=== PATIENT | male | born 1940 | race Asian ===

== ENCOUNTER 2017-01-25 12:56 | Inpatient (IN) | payer MEDICARE, MEDICAID ==
[~2017-01-25] VITALS: Ht 182.9 cm; Wt 66.2 kg
--- NOTE | 2017-01-25 13:35 | NUR ---
OFFSET PRINTING PRESSMEN NOTES RECEIVED PATIENT FROM [facility] TRANSPORTED BY DIRECTOR VETERINARY. PATIENT IS DIRECT ADMIT FROM [facility] UNDER DR ONOFRE. PATIENT'S BASE LINE IS ALTERED MENTAL STATUS, NON VERBAL, PUPILS EQUALLY ROUND AND REACTIVE TO LIGHT. PLACED PATIENT ON O2 2LPM VIA NC, SAT 95%. IQ=825/60, R= 24, T= 99.7. ON TELEMONITOR ST 102. SINCLAIR IN PLACE, DRAINING SLIGHTLY CLOUDY HELEN URINE. IV SITE ON RIGHT AC AND LEFT AC. KEPT PATIENT SAFE AND COMFORTABLE. BED IN LOCKED, LOW POSITION, HOB ELEVATED, SIDERAILS UPX2, CALL LIGHT IN REACH. NOTIFIED DR ONOFRE AND AWAITING FOR ADMITTING ORDERS. WILL CONTINUE TO MONITOR ACCORDINGLY Addendum: 01/25/17 at 1636 by FARHAD CAMPOS PATIENT GTUBE IN PLACE
[2017-01-25] MEDS ORDERED: CARB-93 PO (14:31)
[2017-01-25] MEDS ORDERED: DULO30CA2 PO (14:31)
[2017-01-25] MEDS ORDERED: QUET25TA PO (14:31)
[2017-01-25] MEDS ORDERED: TERA5CAP4 PO (14:31)
[2017-01-25] MEDS ORDERED: IV NS 0.9% 1,000 ML IV PRN (14:41)
[2017-01-25] MEDS ORDERED: ACETAMINOPHEN 325 MG TABLET PO PRN (15:00)
[2017-01-25] MEDS ORDERED: MAGNESIUM HYDROXIDE 30 ML UDC PO PRN (15:00)
[2017-01-25] MEDS ORDERED: MAG HYDROX/AL HYDROX/SIMETH 30 ML UDC PO PRN (15:00)
[2017-01-25] MEDS ORDERED: ONDANSETRON HCL/PF 4 MG/2 ML VIAL IVP PRN (15:00)
[2017-01-25] MEDS ORDERED: Z GUARD REMEDY 2 OZ OINT TP PRN (15:00)
[2017-01-25] MEDS ORDERED: ZOLPIDEM TARTRATE 5 MG TABLET PO PRN (15:00)
[2017-01-25] MEDS ORDERED: HYDROCODONE/APAP 5/325MG 1 EACH TABLET PO PRN (15:00)
[2017-01-25 16:00] VITALS: BP_SYST 92; BP_SYST 95; BP_DIAS 42; BP_DIAS 51
[2017-01-25] MEDS ORDERED: ENOXAPARIN SODIUM 30 MG/0.3 ML DISP.SYRIN SQ SCH (16:00)
[2017-01-25] MEDS: ACETAMINOPHEN 650 MG/20.3 ML UDC GT PRN (17:25)
[2017-01-25] MEDS: CARBIDOPA/LEVODOPA 25/100 MG 1 UDTAB PO SCH (17:25)
--- NOTE | 2017-01-25 18:00 | NUR ---
RN NOTES CALLED [facility] TO FOLLOW UP PATIENT'S GTUBE FEEDINGS. PER SNF RN, THEY WILL FAX THE PAPERWORK.
--- NOTE | 2017-01-25 19:20 | NUR ---
RN NOTES RECEIVED FAX FROM [facility] FOR PATIENT'S GTUBE FEEDING. ENDORSED IT TO OUTREACH NURSE RN.
--- NOTE | 2017-01-25 19:30 | NUR ---
RN CLOSING NOTES PATIENT IN BED RESTING, RESPONSIVE TO PAIN. NO ACUTE DISTRESS, NO SOB NOTED. NO S/S OF PAIN OR DISCOMFORT. ALL NEEDS ATTENDED AND PROVIDED. BED IN LOW POSITION, LOCKED, HOB ELEVATED, SIDERAILS UPX2. CALL LIGHT IN REACH. ENDORSED TO NIGHT RN FOR RADHAMES. ENDORSED TO TOLL LINE MECHANIC RN TO FOLLOW UP ON PATIENT'S ADVANCE DIRECTIVES.
--- NOTE | 2017-01-25 20:08 | NUR ---
RN OPENING NOTES PT RESTING IN BED. NONVERBAL. NO APPARENT S/S OF PAIN OR DISTRESS NOTED AT THIS TIME. NO SOB. WILL CONTINUE TO MONITOR. PT IV PATENT AND INTACT. SINCLAIR CATHETER IN PLACE AND DRAINING WELL. TELE MONITORED SR-91. RECEIVED FEEDING ORDER FROM [facility]. WILL BEGIN G-TUBE FEEDING THIS EVENING. SAFETY MEASURES IN PLACE. BED IN LOW, LOCKED POSITION, 2XSIDE RAILS UP. CALL LIGHT WITHIN REACH.
[2017-01-25 20:14] VITALS: BP 101/61
[2017-01-25] MEDS: QUETIAPINE FUMARATE 25 MG TABLET PO SCH (21:31)
[2017-01-25] MEDS: TERAZOSIN HCL 5 MG CAPSULE PO SCH (21:37)
--- NOTE | 2017-01-25 22:00 | NUR ---
RN NOTES CALLED [facility]. PER [place] PT NA LEVEL 151. ADDRESSED SCHEDULED NS RUNNING. COKE DRAWER HAND ORDERED STAT LABS AND REQUESTED I FOLLOW UP WHEN THE RESULTS WERE BACK CONCERNING THE NA LEVEL.
[2017-01-25 23:24] LABS: BASOPHILS % (AUTO) 0.1 % (0.0-2.0); EOSINOPHILS % (AUTO) 0.1 % (0.0-6.0); HEMATOCRIT 39 % (39-51); HEMOGLOBIN 12.6 g/dL (13.5-17.5); LYMPHOCYTES % (AUTO) 9.8 % (20.0-44.0); MEAN CORPUSCULAR HEMOGLOBIN 27 PG (26.0-33.0); MEAN CORPUSCULAR HGB CONC 32 g/dl (31.0-36.0); MEAN CORPUSCULAR VOLUME 85 fL (80-96); MONOCYTES # (AUTO) 0.7 /CMM (0.1-1.30); MONOCYTES % (AUTO) 3.3 % (2.0-12.0); NEUTROPHILS # (AUTO) 17.5 /CMM (1.8-8.9); NEUTROPHILS % (AUTO) 86.7 % (43.0-81.0); PLATELET COUNT (AUTO) 186 /CMM (150-450); RDW COEFFICIENT OF VARIATION 14.8 (11.5-15.0); RED BLOOD CELL COUNT(AUTO) 4.61 MIL/uL (4.5-6.0); WHITE BLOOD COUNT (AUTO) 20.1 K/uL (4.3-11.0)
[2017-01-25 23:54] LABS: ALANINE AMINOTRANSFERASE 19 U/L (12-78); ALBUMIN 2.6 g/dL (3.4-5.0); ALKALINE PHOSPHATASE 63 U/L (46-116); ASPARTATE AMINOTRANSFERASE 27 U/L (15-37); BILIRUBIN,TOTAL 0.6 mg/dL (0.2-1.0); CARBON DIOXIDE 26 mmol/L (21-32); CHLORIDE 121 mmol/L (98-107); CREATININE 1.2 mg/dL (0.6-1.3); GLUCOSE 118 mg/dL (74-106); PHOSPHORUS 3.5 mg/dL (2.5-4.9); TOTAL PROTEIN, SERUM 6.9 g/dL (6.4-8.2); UREA NITROGEN, BLOOD 45 mg/dL (7-18)
[2017-01-26] VITALS (8 sets, daily range): BP systolic 87–116; BP diastolic 51–64
--- NOTE | 2017-01-26 | NUR ---
RECEIVED CALL FROM LAB [facility]. PT NA 156. WILL CONTACT FOR ORDERS.
[2017-01-26 00:03] LABS: SODIUM SERUM 156 mmol/L (136-145)
[2017-01-26] MEDS ORDERED: IV D5/0.45 NACL 1,000 ML IV SCH (00:30)
--- NOTE | 2017-01-26 00:30 | NUR ---
RN NOTES DR TOBAR RETURNED CALLED. PER PT NS LEVEL, ORDER D5 1/2 NS @75ML/HR TO REPLACE THE ORDER OF NS@75 ML/HR.
[2017-01-26 04:56] LABS: BAND % (MANUAL) 28 % (0.0-5.0); LYMPHOCYTES % (MANUAL) 8 % (16-48); MONOCYTES % (MANUAL) 4 % (0-11.0); NEUTROPHILS % (MANUAL) 60 (42-76)
[2017-01-26 06:19] LABS: BASOPHILS % (AUTO) 0.1 % (0.0-2.0); EOSINOPHILS # (AUTO) 0.1 /CMM (0.0-0.7); EOSINOPHILS % (AUTO) 0.8 % (0.0-6.0); HEMATOCRIT 37 % (39-51); HEMOGLOBIN 12.1 g/dL (13.5-17.5); LYMPHOCYTES # (AUTO) 1.7 /CMM (0.8-4.8); LYMPHOCYTES % (AUTO) 11.3 % (20.0-44.0); MEAN CORPUSCULAR HEMOGLOBIN 28 PG (26.0-33.0); MEAN CORPUSCULAR HGB CONC 33 g/dl (31.0-36.0); MEAN CORPUSCULAR VOLUME 85 fL (80-96); MONOCYTES # (AUTO) 0.5 /CMM (0.1-1.30); MONOCYTES % (AUTO) 3.4 % (2.0-12.0); NEUTROPHILS # (AUTO) 12.4 /CMM (1.8-8.9); NEUTROPHILS % (AUTO) 84.4 % (43.0-81.0); PLATELET COUNT (AUTO) 169 /CMM (150-450); RDW COEFFICIENT OF VARIATION 14.3 (11.5-15.0); RED BLOOD CELL COUNT(AUTO) 4.31 MIL/uL (4.5-6.0); WHITE BLOOD COUNT (AUTO) 14.7 K/uL (4.3-11.0)
[2017-01-26 06:39] LABS: CALCIUM, SERUM 8.9 mg/dL (8.5-10.1); CARBON DIOXIDE 27 mmol/L (21-32); CHLORIDE 121 mmol/L (98-107); GLUCOSE 102 mg/dL (74-106); MAGNESIUM 2.2 mg/dL (1.8-2.4); PHOSPHORUS 2.6 mg/dL (2.5-4.9); POTASSIUM 3.7 mmol/L (3.5-5.1); SODIUM SERUM 155 mmol/L (136-145); UREA NITROGEN, BLOOD 43 mg/dL (7-18)
--- NOTE | 2017-01-26 07:23 | NUR ---
PT CLOSING NOTES PT RESTING IN BED. PT NONVERBAL. NO APPARENT S/S OF PAIN OR DISTRESS NOTED. PT HAS D5 1/2NS RUNNING AT 75ML/HR. PT GTUBE FEEDING GLYTROL RUNNING AT 75ML/HR. PT TOLERATING FEEDING AND IVF WELL. SAFETY MEASURES IN PLACE. BED, IN LOW LOCKED POSITION, CALL LIGHT WITHIN REACH. ALL PT NEEDS MET. WILL ENDORSE TO DAY SHIFT NURSE FOR CONTINUITY OF CARE.
--- NOTE | 2017-01-26 08:08 | NUR ---
YARD COORDINATOR NOTES PATIENT IN BED, SLEEPING. ON OXYGEN AT 2L VIA NC, BREATHING EVEN AND NON LABORED. SINUS RHYTHM HR 85 IN THE MONITOR. APPEARS COMFORTABLE IN BED, NO FACIAL GRIMACING. ABDOMEN PRESENCE OF GTUBE, ON TUBE FEEDING GYTROL AT 75ML/HR, MAINTAIN HOB ELEVATED. BED LOW AND LOCKED, SIDE RAILS UP X2. WILL CONT TO MONITOR.
[2017-01-26] MEDS: CARBIDOPA/LEVODOPA 25/100 MG 1 UDTAB PO SCH ×2 (08:24→16:23)
[2017-01-26] MEDS ORDERED: DULOXETINE HCL 30 MG CAPSULE.DR PO SCH (09:00)
[2017-01-26] MEDS: IV D5/0.45 NACL 1,000 ML IV PRN ×2 (09:21→15:03)
--- NOTE | 2017-01-26 13:02 | NUR ---
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 RECOMMENDATIONS MADE FOR SKIN PROTECTION. DISCUSSED WITH NURSING STAFF. PT ON PREMA ISOFLEX LOW AIRLOSS BED. ALL SKIN PROTECTION MEASURES IN PLACE. WILL SEE PRN. GARCIA IN AGREEMENT WITH PLAN OF CARE. CURRENT DERRICK SCORE IS 11. Addendum: 01/26/17 at 1304 by YAMILA GALVAN WNDNU Amended: Links added.
[2017-01-26] MEDS: GLYTROL 1,000 ML BAG GT PRN (13:41)
[2017-01-26] MEDS: CEFTRIAXONE 1 G in IV D5W 50 ML IV SCH (14:28)
--- NOTE | 2017-01-26 15:14 | NUR ---
PER RD RECOMMENDATION INCREASED GLYTROL AT 80ML/HR X24 HOURS, INFORMED.
--- NOTE | 2017-01-26 18:46 | NUR ---
CAGE CASHIER CLOSING NOTES PATIENT IS A/O X1. ABLE TO OPEN HIS EYES, NON VERBAL. ON TELE MONITOR SINUS RHYTHM HR 79, IV IN LEFT AC G20 PATENT AND INTACT, IV D5 1/2 NS INFUSING AT 200ML/HR TO CONSUMED ORDERED 2000MLS TO INFUSE. MAINTAIN HOB ELEVATED, TOLERATING CURRENT TUBE FEEDING GLYTROL AT 80ML/HR. SINCLAIR CATH IN PLACE DRAINING TO GRAVITY. TURN AND REPOSITION Q 2HRS. COLLECTED SPECIMEN TODAY FOR MRSA SURVEILLANCE, RESULT PENDING. CALLED [facility] FOR COPIES OF DNR STATUS, UNABLE TO REACH MEDICAL RECORDS, WILL FOLLOW UP. WILL ENDORSE TO TECHNICAL TRAINING COORDINATOR RN FOR RADHAMES.
--- NOTE | 2017-01-26 19:27 | NUR ---
tele/rn opening notes patient resting comfortably in bed, asleep but arousable to touch. on oxygen via nc at 2l., respiratione even and unlabored. skin warm to touch. iv running 2nd bag iv site on LFA, brannon catheter draining with yellow urine, gtube running at 80ml /hr, with 10ml residual. will continue to monitor, patient is contracted require extensive assistance. tele monitor at SR79,
[2017-01-26] MEDS: ENOXAPARIN SODIUM 40 MG/0.4 ML DISP.SYRIN SQ SCH (20:37)
[2017-01-26] MEDS: QUETIAPINE FUMARATE 25 MG TABLET PO SCH (21:42)
[2017-01-26] MEDS: TERAZOSIN HCL 5 MG CAPSULE PO SCH (21:43)
--- NOTE | 2017-01-26 22:36 | NUR ---
tele/rn notes patient recheck b/p and pulse rate. noted elevated pulse rate at 109. b/p recheck at 122/59. temperature at 101. administer tylenol 650mg po by mouth w/ apple sauce, cooling measures provided,hob elevated. will monitor and recheck vital signs. administer b/p med , will monitor. Addendum: 01/27/17 at 0522 by CARLOS DAILEY RN WRONG NOTES FOR ANOTHER PATIENT.
[2017-01-27] VITALS (8 sets, daily range): BP systolic 85–126; BP diastolic 49–76
--- NOTE | 2017-01-27 04:00 | NUR ---
TELE/RN NOTES SPOKE WITH [facility] WORKER OF [facility] AND REQUESTED FOR MOUNA Flores MD SIGNATURE SAID WILL COMPLETE THE FORM AND FAXT WHEN AVAILABLE.
[2017-01-27] MEDS: GLYTROL 1,000 ML BAG GT PRN (04:03)
--- NOTE | 2017-01-27 06:45 | NUR ---
TELE/RN NOTES PATIENT IN HOB ELEVATED, RESTING COMFORTABLY IN BED, SKIN WARM TO TOUCH, REPOSITION FOR COMFORT. OBSERVED NO GRIMACE, OR GUARDING. MONITORING FOR ANY CHANGES. BED IN LOCK POSITION. RESIDUAL CHECK WITH ZERO RESIDUAL. ON OXYGEN VIA NC AT 2L.SINCLAIR CATHETER WITH YELLOW URINE OUTPUT. TELE READING AT SR 70'S. WILL ENDORSE TO AM RN FOR RADHAMES.
[2017-01-27 07:15] LABS: EOSINOPHILS # (AUTO) 0.2 /CMM (0.0-0.7); EOSINOPHILS % (AUTO) 1.9 % (0.0-6.0); HEMATOCRIT 37 % (39-51); HEMOGLOBIN 12.1 g/dL (13.5-17.5); LYMPHOCYTES # (AUTO) 1.3 /CMM (0.8-4.8); LYMPHOCYTES % (AUTO) 12.6 % (20.0-44.0); MEAN CORPUSCULAR HEMOGLOBIN 28 PG (26.0-33.0); MEAN CORPUSCULAR HGB CONC 33 g/dl (31.0-36.0); MEAN CORPUSCULAR VOLUME 86 fL (80-96); MONOCYTES # (AUTO) 0.5 /CMM (0.1-1.30); MONOCYTES % (AUTO) 4.7 % (2.0-12.0); NEUTROPHILS # (AUTO) 8.3 /CMM (1.8-8.9); NEUTROPHILS % (AUTO) 80.8 % (43.0-81.0); PLATELET COUNT (AUTO) 176 /CMM (150-450); RDW COEFFICIENT OF VARIATION 14.4 (11.5-15.0); RED BLOOD CELL COUNT(AUTO) 4.33 MIL/uL (4.5-6.0); WHITE BLOOD COUNT (AUTO) 10.2 K/uL (4.3-11.0)
--- NOTE | 2017-01-27 07:20 | NUR ---
RN INITIAL NOTES RECEIVED PT IN BED, NON VERBAL, NO SOB NOTED, BREATHING EVEN AND UNLABORED, NO FACIAL GRIMACING NOTED. ALL PATIENT'S NEEDS ATTENDED TO, PATIENT CONTINUES TO BE UNDER TELE WITH SR 91, WILL CONTINUE TO MONITOR. KEPT PT SAFE AND DRY, CLEAN AND COMFORTABLE.
[2017-01-27 07:27] LABS: ALANINE AMINOTRANSFERASE 49 U/L (12-78); ALBUMIN 2.3 g/dL (3.4-5.0); ALKALINE PHOSPHATASE 61 U/L (46-116); ASPARTATE AMINOTRANSFERASE 39 U/L (15-37); BILIRUBIN,TOTAL 0.2 mg/dL (0.2-1.0); CARBON DIOXIDE 25 mmol/L (21-32); CHLORIDE 120 mmol/L (98-107); CREATININE 0.9 mg/dL (0.6-1.3); GLUCOSE 107 mg/dL (74-106); PHOSPHORUS 2.5 mg/dL (2.5-4.9); POTASSIUM 3.8 mmol/L (3.5-5.1); SODIUM SERUM 154 mmol/L (136-145); TOTAL PROTEIN, SERUM 6.3 g/dL (6.4-8.2); UREA NITROGEN, BLOOD 36 mg/dL (7-18)
[2017-01-27 07:41] LABS: TROPONIN I < 0.017 ng/mL (0.00-0.056)
[2017-01-27] MEDS: CARBIDOPA/LEVODOPA 25/100 MG 1 UDTAB PO SCH ×2 (08:39→16:35)
[2017-01-27] MEDS: DULOXETINE HCL 30 MG CAPSULE.DR GT SCH (08:43)
[2017-01-27] MEDS: IV NS 0.9% 1,000 ML IV PRN (08:49)
[2017-01-27] MEDS: CEFTRIAXONE 1 G in IV D5W 50 ML IV SCH (15:25)
--- NOTE | 2017-01-27 18:33 | NUR ---
RN CLOSING NOTES PATIENT IN BED, AWAKE, CONTINUES TO BE NON VERBAL, NOTED WITH NO FACIAL GRIMACING, IN NO ACUTE DISTRESS, PATIENT RECEIVING IV HYDRATION ORDERED VIA PERIPHERAL IV LINE ON LACG20. ON GTUBE FEEDING GLYTROL RUNNING @80 ML/HR. ALL PATIENT'S NEEDS ATTENDED TO, KEPT PT SAFE AND DRY, CLEAN AND COMFORTABLE. BED PLACED IN LOW POSITION, LOCKED IN PLACE.
--- NOTE | 2017-01-27 19:45 | NUR ---
Recieved pt in bed alseep tube feeding running intact @80ml/hr; 0.9% saline running in left hand IV @100ml/hr; pt dry; wound dressing intact in gluteal area; calm appearing comfortable non verbal
[2017-01-27] MEDS: QUETIAPINE FUMARATE 25 MG TABLET PO SCH (22:32)
[2017-01-27] MEDS: TERAZOSIN HCL 5 MG CAPSULE PO SCH (22:53)
[2017-01-27] MEDS: ENOXAPARIN SODIUM 40 MG/0.4 ML DISP.SYRIN SQ SCH (22:54)
[2017-01-28] MEDS: GLYTROL 1,000 ML BAG GT PRN ×2 (03:49→15:19)
[2017-01-28] MEDS: IV NS 0.9% 1,000 ML IV PRN ×3 (03:49→22:14)
[2017-01-28 06:56] LABS: EOSINOPHILS # (AUTO) 0.1 /CMM (0.0-0.7); EOSINOPHILS % (AUTO) 1.3 % (0.0-6.0); HEMATOCRIT 36 % (39-51); HEMOGLOBIN 11.8 g/dL (13.5-17.5); LYMPHOCYTES # (AUTO) 1.6 /CMM (0.8-4.8); LYMPHOCYTES % (AUTO) 18.5 % (20.0-44.0); MEAN CORPUSCULAR HEMOGLOBIN 28 PG (26.0-33.0); MEAN CORPUSCULAR HGB CONC 33 g/dl (31.0-36.0); MEAN CORPUSCULAR VOLUME 86 fL (80-96); MONOCYTES # (AUTO) 0.4 /CMM (0.1-1.30); MONOCYTES % (AUTO) 5.1 % (2.0-12.0); NEUTROPHILS # (AUTO) 6.5 /CMM (1.8-8.9); NEUTROPHILS % (AUTO) 75.1 % (43.0-81.0); PLATELET COUNT (AUTO) 161 /CMM (150-450); RDW COEFFICIENT OF VARIATION 13.9 (11.5-15.0); RED BLOOD CELL COUNT(AUTO) 4.22 MIL/uL (4.5-6.0); WHITE BLOOD COUNT (AUTO) 8.6 K/uL (4.3-11.0)
[2017-01-28 07:08] LABS: ALANINE AMINOTRANSFERASE 39 U/L (12-78); ALBUMIN 2.2 g/dL (3.4-5.0); ALKALINE PHOSPHATASE 61 U/L (46-116); ASPARTATE AMINOTRANSFERASE 28 U/L (15-37); BILIRUBIN,TOTAL 0.2 mg/dL (0.2-1.0); CALCIUM, SERUM 9.1 mg/dL (8.5-10.1); CARBON DIOXIDE 26 mmol/L (21-32); CHLORIDE 116 mmol/L (98-107); CREATININE 0.8 mg/dL (0.6-1.3); GLUCOSE 120 mg/dL (74-106); MAGNESIUM 1.9 mg/dL (1.8-2.4); POTASSIUM 4.1 mmol/L (3.5-5.1); SODIUM SERUM 149 mmol/L (136-145); TOTAL PROTEIN, SERUM 6.4 g/dL (6.4-8.2); UREA NITROGEN, BLOOD 34 mg/dL (7-18)
[2017-01-28 08:00] VITALS: BP 109/66
--- NOTE | 2017-01-28 08:00 | NUR ---
RN OPENING NOTES RECEIVED PT. IN BED ALERT, NON VERBAL, OPENS EYES TO HIS NAME. BREATHING UNLABORED, AND EVENLY ON OXYGEN 3L/MIN, VIA NASAL CANNULA. NO S/S OF ACUTE DISTRESS. IV FLUIDS RUNNING ON LEFT ANTECUBITAL SITE, NO SIGNS OF LEAKAGE. G TUBE RUNNING AT 80 ML/HR. SINCLAIR CATHETER HAS 200 CC OF CLEAR AND YELLOW URINE OUTPUT. BED IS IN LOWEST, AND LOCKED POSITION, 2 SIDE RAILS UP, AND CALL LIGHT WITHIN REACH. ALL NEEDS MET. WILL CONTINUE TO ASSESS AND MONITOR.
[2017-01-28] MEDS: CARBIDOPA/LEVODOPA 25/100 MG 1 UDTAB PO SCH ×2 (10:04→17:18)
[2017-01-28] MEDS: DULOXETINE HCL 30 MG CAPSULE.DR GT SCH (10:04)
--- NOTE | 2017-01-28 11:30 | NUR ---
RN RADHA COYNE FROM [facility] CALLED TO REPORT PT. URINE CULTURE RESULTS WERE POSITIVE, AND WANTED TO MAKE SURE THAT PT. WAS GOING TO BE TREATED APPROPRIATELY FOR POSITIVE URINE CULTURE. REQUESTED A COPY OF THE RESULTS TO BE FAXED TO [facility]. DORETHA AGREED.
[2017-01-28] MEDS: CEFTRIAXONE 1 G in IV D5W 50 ML IV SCH (15:15)
[2017-01-28 16:00] VITALS: BP 121/66
--- NOTE | 2017-01-28 16:00 | NUR ---
RN NOTES PT. RECEIVED WOUND CARE, AND NEW MEPILEX APPLIED.
[2017-01-28] MEDS: ACETAMINOPHEN 650 MG/20.3 ML UDC GT PRN (17:43)
--- NOTE | 2017-01-28 18:07 | NUR ---
RN NOTES CALLED [facility] [phone] TO REQUEST A PAPER COPY OF THE PT.'S ADVANCE DIRECTIVE. PROVIDED 3 WEST FAX NUMBER TO RECEIVE A COPY.
--- NOTE | 2017-01-28 18:58 | NUR ---
RN CLOSING NOTES PT. IN BED AWAKE, RESPONSIVE TO NAME BY OPENING EYES, ANSWERS QUESTIONS WITH UNCLEAR SPEECH. BREATHING UNLABORED, AND EVENLY ON OXYGEN 2L/MIN, VIA NASAL CANNULA. NO S/S OF ACUTE DISTRESS. IV FLUIDS RUNNING ON LEFT ANTECUBITAL SITE AT 100 ML/HR, RIGHT IV REMOVED. PT. TOLERATING G TUBE FEEDING WELL WITH NO RESIDUAL, RUNNING AT 80 ML/HR. SINCLAIR CATHETER HAD 1200 CC OF CLEAR AND YELLOW URINE OUTPUT. BED IS IN LOWEST, AND LOCKED POSITION, 2 SIDE RAILS UP, AND CALL LIGHT WITHIN REACH. ALL NEEDS MET. WILL ENDORSE REPORT TO NURSE.
--- NOTE | 2017-01-28 19:34 | NUR ---
RN OPENING NOTES PT AWAKE IN BED. NONVERBAL, RESPONDS TO NAME BY OPENING EYES. NO APPARENT S/S OF PAIN OR DISTRESS AT THIS TIME. NO SIGNS OF SOB PT ON 2L O2 VIA NASAL CANNULA. PT HAS A RIGHT AC RUNNING NS @100ML/HR. PT TOLERATING FLUID WELL. PT HAS GLYTROL GTUBE FEEDING RUNNING AT 80ML/HR. SINCLAIR CATHETER IN PLACE AND DRAINING WELL. SAFETY PRECAUTIONS IN PLACE. BED IN LOW LOCKED POSITION, 2XSIDERAILS UP. CALL LIGHT WITHIN REACH. WILL CONTINUE TO MONITOR.
[2017-01-28 20:00] VITALS: BP 113/65
[2017-01-28] MEDS: QUETIAPINE FUMARATE 25 MG TABLET PO SCH (22:02)
[2017-01-28] MEDS: ENOXAPARIN SODIUM 40 MG/0.4 ML DISP.SYRIN SQ SCH (22:03)
[2017-01-28] MEDS: TERAZOSIN HCL 5 MG CAPSULE PO SCH (22:08)
[2017-01-29] MEDS: GLYTROL 1,000 ML BAG GT PRN (05:24)
--- NOTE | 2017-01-29 06:51 | NUR ---
RN CLOSING NOTES PT RESTING IN BED. PT NONVERBAL AND CONFUSED. PT CONTRACTED. NO APPARENT S/S OF PAIN, DISTRESS, OR SOB. PT HAS A SINCLAIR CATHETER VOIDED 990ML. INTACT AND DRAINING WELL. PT ALSO HAS A R AC #22 RUNNING NS @100 ML/HR. PT G TUBE FEEDING RUNNING GLYTROL 80ML/HR. PT TOLERATING WELL, LESS THAN 5ML RESIDUAL. WILL ENDORSE TO DAY SHIFT NURSE FOR CONTINUITY OF CARE.
[2017-01-29 07:18] LABS: CALCIUM, SERUM 8.6 mg/dL (8.5-10.1); CARBON DIOXIDE 27 mmol/L (21-32); CHLORIDE 111 mmol/L (98-107); CREATININE 0.7 mg/dL (0.6-1.3); GLUCOSE 118 mg/dL (74-106); POTASSIUM 4.2 mmol/L (3.5-5.1); SODIUM SERUM 144 mmol/L (136-145); UREA NITROGEN, BLOOD 27 mg/dL (7-18)
[2017-01-29 07:34] LABS: BASOPHILS % (AUTO) 0.1 % (0.0-2.0); EOSINOPHILS # (AUTO) 0.2 /CMM (0.0-0.7); EOSINOPHILS % (AUTO) 2.7 % (0.0-6.0); HEMATOCRIT 34 % (39-51); HEMOGLOBIN 11.2 g/dL (13.5-17.5); LYMPHOCYTES # (AUTO) 1.4 /CMM (0.8-4.8); LYMPHOCYTES % (AUTO) 17.2 % (20.0-44.0); MEAN CORPUSCULAR HEMOGLOBIN 28 PG (26.0-33.0); MEAN CORPUSCULAR HGB CONC 33 g/dl (31.0-36.0); MEAN CORPUSCULAR VOLUME 85 fL (80-96); MONOCYTES # (AUTO) 0.5 /CMM (0.1-1.30); MONOCYTES % (AUTO) 6.7 % (2.0-12.0); NEUTROPHILS # (AUTO) 5.9 /CMM (1.8-8.9); NEUTROPHILS % (AUTO) 73.3 % (43.0-81.0); PLATELET COUNT (AUTO) 160 /CMM (150-450); RDW COEFFICIENT OF VARIATION 13.8 (11.5-15.0); RED BLOOD CELL COUNT(AUTO) 4.05 MIL/uL (4.5-6.0)
--- NOTE | 2017-01-29 07:47 | NUR ---
RN OPEN NOTES RECEIVED REPORT FROM DITCH DIGGER NURSE. PATIENT IS IN BED, WITH HIS EYES CLOSED, EASILY AROUSED TO LIGHT TOUCH. NO SIGNS OR SYMPTOMS OF DISTRESS. [place] IN LOW POSITION, LOCKED AND TWO SIDE RAILS ARE UP. CALL LIGHT WITHIN REACH FOR SAFETY. GASTRIC TUBE SET TO 80ML/HR, IV SITE IS INTACT AND PATENT AND CURRENTLY RUNNING IV FLUID AT 100ML/HR. WILL CONTINUE TO MONITOR AND ASSESS PATIENT
[2017-01-29 08:30] VITALS: BP 123/73
[2017-01-29] MEDS: CARBIDOPA/LEVODOPA 25/100 MG 1 UDTAB PO SCH (08:38)
[2017-01-29] MEDS: DULOXETINE HCL 30 MG CAPSULE.DR GT SCH (08:38)
[2017-01-29] MEDS ORDERED: CEFT1VIA15 IV ×2 (08:46→09:04)
--- NOTE | 2017-01-29 12:44 | NUR ---
COMMISSIONER CONSERVATION OF RESOURCES NOTES PATIENT DISCHARGE ORDER RECEIVED. PATIENT IS NON VERBAL. NO NEW CONCERNS IDENTIFIED AT TIME OF DISCHARGE. NO SIGNS AND SYMPTOMS OF DISTRESS OR PAIN. ALL DISCHARGE INSTRUCTIONS EXPLAINED TO SNF RNYANELI. PATIENT IS GOING BACK TO ROOM 208A. 2 RNs SIGNED BOTH DISCHARGE INSTRUCTION FORM AND BELONGING LIST FROM. FORMS PLACED IN THE CHART. ALL PERSONAL BELONGING WITH PATIENT AT TIME OF DISCHARGE. PATIENT IS DISCHARGED WITH IV SITE ON THE LEFT AC 22G FOR CONTINUATION OF ANTIBIOTIC IV. PATIENT IS DISCHARGE WITH A SINCLAIR. EMPTIED SINCLAIR PRIOR TO DISCHARGE WITH 900ML OUTPUT. VITAL SIGNS ARE STABLE. G-TUBE IS INTACT AND PATENT. PICTURES WERE TAKEN AND PLACED IN THE CHART. PATIENT TRANSPORTED TO [facility] VIA AMBULANCE AND 2 community living instructor. AMBULANCE PICKED UP PATIENT AT 12:40PM.
== END 2017-01-29 13:13 | DRG 871 ==
LOC: TELE 12:56 → MED 01-27 09:12
PROVIDERS: ADMIT Internal Medicine; ATTEND Internal Medicine
DX: A41.9 Sepsis, unspecified organism (principal); G92 Toxic encephalopathy; E43 Unspecified severe protein-calorie malnutrition; N17.9 Acute kidney failure, unspecified; E87.0 Hyperosmolality and hypernatremia; D63.8 Anemia in other chronic diseases classified elsewhere; G20 Parkinson's disease; E11.9 Type 2 diabetes mellitus without complications; N39.0 Urinary tract infection, site not specified; Z66 Do not resuscitate; R13.10 Dysphagia, unspecified; F02.80 Dementia in other diseases classified elsewhere, unspecified severity, without behavioral disturbance, psychotic disturbance, mood disturbance, and anxiety; I10 Essential (primary) hypertension; I70.0 Atherosclerosis of aorta; Z93.1 Gastrostomy status; E86.1 Hypovolemia; E86.0 Dehydration; F41.9 Anxiety disorder, unspecified; F32.9 Major depressive disorder, single episode, unspecified
CPT/HCPCS: 36415; 71010-TC; 80048-TC; 80053-TC; 83735-TC; 84100-TC; 84484-TC; 85025-TC; 87081-TC; 93307-TC; A6403; J0696; J1650; J3490; J7030; J7060; Z7610